=== PATIENT | male | born 1940 | race Caucasian/White ===

== ENCOUNTER 2020-01-19 10:30 | Observation (INO) ==
[2020-01-19] MEDS ORDERED: Azithromycin 500 MG in 0.9 % Sodium Chloride 250 ML IVPB ONE (10:58)
[2020-01-19] MEDS ORDERED: Ondansetron 4 MG/2 ML VIAL IVP ONE (10:58)
[2020-01-19] MEDS ORDERED: 0.9 % Sodium Chloride 1,000 ML IVC ONE (10:58)
[2020-01-19] MEDS ORDERED: cefTRIAXone 1,000 MG in Water for inj. (sterile) 10 ML IVP ONE (10:59)
[2020-01-19 11:47] LABS: Bilirubin,Urine Negative (Negative); Blood,Urine Negative (Negative); Clarity,Urine Clear (Clear); Color,Urine Yellow (Yellow); Glucose,Urine (UA) Normal (Normal); Ketones,Urine Negative (Negative); Leukocyte Esterase,Urine Negative (Negative); Nitrite,Urine Negative (Negative); Protein,Urine Trace mg/dL (Neg-Trace); Specific Gravity,Urine 1.021 (1.010-1.025); Urobilinogen,Urine Normal (Normal)
[2020-01-19 12:08] LABS: Hematocrit 35.8 % (37.5-50.1); Hemoglobin 11.7 g/dL (12.9-16.9); Mean Corpuscular HGB Conc 32.7 g/dL (31.6-35.5); Mean Corpuscular Hemoglobin 28.7 pg (28.0-33.3); Mean Corpuscular Volume 87.7 fL (83.0-100.0); Mean Platelet Volume 10.9 fL (9.4-12.4); Platelet Count 134 K/mcL (140-400); Red Blood Count 4.08 M/mcL (4.19-5.50); Red Cell Distribution Width 13.5 % (11.5-14.5); White Blood Count 5.1 K/mcL (4.3-11.1)
[2020-01-19 12:09] LABS: Basophils % 0.2 %; Lymphocytes # 1.3 K/mcL (0.6-4.6); Lymphocytes % 24.7 %; Monocytes # 0.5 K/mcL (0.0-1.3); Monocytes % 9.3 %; Neutrophils # 3.3 K/mcL (1.6-8.9); Segmented Neutrophils % 65.2 %
[2020-01-19 12:10] LABS: Activated Partial Thrombo Time 40.2 Seconds (26.0-36.0); INR 1.6; Prothrombin Time 18.3 Seconds (9.4-12.1)
[2020-01-19 12:21] LABS: Troponin I < 0.03 ng/mL (< 0.04)
[2020-01-19 12:32] LABS: Alanine Aminotransferase 33 Units/L (7-52); Albumin 3.7 g/dL (3.5-5.7); Albumin/Globulin Ratio 1.3 (1.1-2.2); Alkaline Phosphatase 47 Units/L (34-104); Amylase 30 Units/L (29-103); Aspartate Amino Transferase 47 Units/L (13-39); BUN/Creatinine Ratio 20 (6-26); Bilirubin,Direct 0.2 mg/dL (0.0-0.2); Bilirubin,Indirect 0.5 mg/dL (0.0-1.0); Bilirubin,Total 0.7 mg/dL (0.3-1.0); Blood Urea Nitrogen 24 mg/dL (8-23); Calcium 8.3 mg/dL (8.6-10.3); Carbon Dioxide 22 mEq/L (23-29); Chloride 95 mEq/L (98-107); Globulin 2.9 g/dL (2.4-3.5); Glucose 125 mg/dL (70-105); Lipase 36 Units/L (11-82); Magnesium 1.4 mg/dL (1.6-2.6); Osmolality,Calculated 268 (280-300); Potassium 4.8 mEq/L (3.5-5.1); Sodium 126 mEq/L (136-145); Total Protein 6.6 g/dL (6.4-8.9); eGFR For African Americans > 60 (> 60); eGFR For Non-African Americans 58 (> 60)
[2020-01-19] MEDS ORDERED: Acetaminophen 325 MG TABLET PO PRN (12:46)
[2020-01-19] MEDS ORDERED: Ondansetron 4 MG/2 ML VIAL IVP PRN (12:46)
[2020-01-19] MEDS ORDERED: Dextrose Gel 15 GM/37.5 ML TUBE PO PRN ×2 (20:25)
[2020-01-19] MEDS ORDERED: D5% in Water 1,000 ML IVC PRN (20:25)
[2020-01-19] MEDS ORDERED: *HR* Dextrose 50 % in Water (Vial) 50 ML VIAL IVP PRN (20:25)
[2020-01-19] MEDS: Famotidine 20 MG TABLET PO SCH (20:27)
[2020-01-19] MEDS: Apixaban 5 MG TABLET PO SCH (20:53)
[2020-01-19] MEDS ORDERED: Insulin LISPRO 300 UNITS/3 ML VIAL SQ SCH (21:00)
[2020-01-20] MEDS ORDERED: Melatonin 3 MG TABLET PO PRN
[2020-01-20 05:50] VITALS: BP 110/55
[2020-01-20 06:15] LABS: INR 1.6; Prothrombin Time 18.2 Seconds (9.4-12.1)
[2020-01-20 06:27] LABS: Alanine Aminotransferase 29 Units/L (7-52); Albumin 3.2 g/dL (3.5-5.7); Albumin/Globulin Ratio 1.2 (1.1-2.2); Alkaline Phosphatase 42 Units/L (34-104); Aspartate Amino Transferase 44 Units/L (13-39); BUN/Creatinine Ratio 21 (6-26); Bilirubin,Direct 0.3 mg/dL (0.0-0.2); Bilirubin,Indirect 0.4 mg/dL (0.0-1.0); Bilirubin,Total 0.7 mg/dL (0.3-1.0); Blood Urea Nitrogen 23 mg/dL (8-23); Calcium 7.9 mg/dL (8.6-10.3); Carbon Dioxide 23 mEq/L (23-29); Chloride 96 mEq/L (98-107); Globulin 2.6 g/dL (2.4-3.5); Glucose 110 mg/dL (70-105); Lactate Dehydrogenase 234 Units/L (140-271); Osmolality,Calculated 268 (280-300); Phosphorous 3.9 mg/dL (2.7-4.5); Potassium 4.7 mEq/L (3.5-5.1); Sodium 127 mEq/L (136-145); Total Protein 5.8 g/dL (6.4-8.9); eGFR For African Americans > 60 (> 60); eGFR For Non-African Americans > 60 (> 60)
[2020-01-20 06:40] LABS: Ferritin 508 ng/mL (20-250)
[2020-01-20] MEDS ORDERED: Insulin LISPRO 300 UNITS/3 ML VIAL SQ SCH (07:30)
[2020-01-20 07:49] LABS: Hemoglobin 10.9 g/dL (12.9-16.9); Mean Corpuscular Hemoglobin 29.3 pg (28.0-33.3); Mean Corpuscular Volume 88.7 fL (83.0-100.0); Mean Platelet Volume 11.6 fL (9.4-12.4); Platelet Count 124 K/mcL (140-400); Red Blood Count 3.72 M/mcL (4.19-5.50); Red Cell Distribution Width 13.6 % (11.5-14.5); White Blood Count 4.8 K/mcL (4.3-11.1)
[2020-01-20] MEDS ORDERED: Aspirin Enteric Coated 81 MG Tablet PO SCH (09:00)
[2020-01-20] MEDS ORDERED: Finasteride 5 MG TABLET PO SCH (09:00)
[2020-01-20] MEDS: Apixaban 5 MG TABLET PO SCH (09:27)
[2020-01-20] MEDS: Famotidine 20 MG TABLET PO SCH (09:27)
[2020-01-20 09:35] LABS: C-Reactive Protein 25 mg/L (Less than 10)
== END 2020-01-20 12:02 | disposition home or self-care (01) ==
LOC: EMEROOARM 10:30 → 2NENU 10:30 → SUATTDRO 13:48 → 2NENU 14:21
PROVIDERS: ADMIT Internal Medicine; ATTEND Internal Medicine

== ENCOUNTER 2020-01-22 13:02 | Inpatient (IN) ==
[2020-01-22] MEDS ORDERED: Ondansetron 4 MG/2 ML VIAL IVP ONE (13:47)
[2020-01-22] MEDS ORDERED: 0.9 % Sodium Chloride 1,000 ML IVC ONE (13:47)
[2020-01-22] MEDS ORDERED: *HR* Promethazine 25 MG/ML VIAL IVP ONE (14:00)
[2020-01-22 14:25] LABS: Bacteria,Urine Few per hpf (None-Few); Bilirubin,Urine Negative (Negative); Blood,Urine Trace (Negative); Clarity,Urine Clear (Clear); Color,Urine Yellow (Yellow); Glucose,Urine (UA) Normal (Normal); Hyaline Casts,Urine Few per lpf (None Seen); Ketones,Urine Negative (Negative); Leukocyte Esterase,Urine Negative (Negative); Mucus,Urine Few per lpf (None-Few); Nitrite,Urine Negative (Negative); PH,Urine 6.5 pH Units (5.0-8.0); Protein,Urine 50 mg/dL (Neg-Trace); RBC,Urine 0-3 per hpf (0-3); Specific Gravity,Urine 1.014 (1.010-1.025); Urobilinogen,Urine Normal (Normal); WBC,Urine 0-3 per hpf (0-3)
[2020-01-22 14:36] LABS: Hematocrit 35.8 % (37.5-50.1); Hemoglobin 11.8 g/dL (12.9-16.9); Lymphocytes # 1.1 K/mcL (0.6-4.6); Mean Corpuscular Hemoglobin 28.9 pg (28.0-33.3); Mean Corpuscular Volume 87.5 fL (83.0-100.0); Mean Platelet Volume 10.6 fL (9.4-12.4); Monocytes # 0.5 K/mcL (0.0-1.3); Neutrophils # 4.4 K/mcL (1.6-8.9); Platelet Count 168 K/mcL (140-400); Red Blood Count 4.09 M/mcL (4.19-5.50); Red Cell Distribution Width 13.1 % (11.5-14.5)
[2020-01-22 15:03] LABS: Reactive Lymphocytes Present (Not Present)
[2020-01-22 15:06] LABS: Toxic Granulation Present (Not Present)
[2020-01-22 15:13] LABS: Platelet Estimate Normal (Normal); Poikilocytosis 1+ (Not Present)
[2020-01-22 15:18] LABS: Alanine Aminotransferase 38 Units/L (7-52); Albumin 3.6 g/dL (3.5-5.7); Albumin/Globulin Ratio 1.2 (1.1-2.2); Alkaline Phosphatase 56 Units/L (34-104); Aspartate Amino Transferase 65 Units/L (13-39); BUN/Creatinine Ratio 15 (6-26); Bilirubin,Direct 0.4 mg/dL (0.0-0.2); Bilirubin,Indirect 0.5 mg/dL (0.0-1.0); Bilirubin,Total 0.9 mg/dL (0.3-1.0); Blood Urea Nitrogen 15 mg/dL (8-23); Carbon Dioxide 23 mEq/L (23-29); Chloride 89 mEq/L (98-107); Glucose 167 mg/dL (70-105); Magnesium 1.4 mg/dL (1.6-2.6); Osmolality,Calculated 259 (280-300); Potassium 4.3 mEq/L (3.5-5.1); Sodium 122 mEq/L (136-145); Total Protein 6.6 g/dL (6.4-8.9); Troponin I < 0.03 ng/mL (< 0.04); eGFR For African Americans > 60 (> 60); eGFR For Non-African Americans > 60 (> 60)
[2020-01-22] MEDS ORDERED: cefTRIAXone 1,000 MG in Water for inj. (sterile) 10 ML IVP ONE (16:12)
[2020-01-22] MEDS ORDERED: Dexamethasone 4 MG/ML VIAL IVP STA (16:12)
[2020-01-22] MEDS ORDERED: Ondansetron 4 MG/2 ML VIAL IVP PRN (16:34)
[2020-01-22] MEDS ORDERED: *HR* Promethazine 25 MG/ML VIAL IVP PRN (16:34)
[2020-01-22] MEDS ORDERED: Calcium Gluconate 1gm/50mL 1 GM/50 ML BAG IVPB ONE (16:41)
[2020-01-22] MEDS: 0.9 % Sodium Chloride 1,000 ML IVC SCH (21:17)
[2020-01-23] MEDS ORDERED: Acetaminophen 325 MG TABLET PO PRN (02:46)
[2020-01-23 06:59] LABS: Hematocrit 35.2 % (37.5-50.1); Hemoglobin 11.9 g/dL (12.9-16.9); Mean Corpuscular HGB Conc 33.8 g/dL (31.6-35.5); Mean Corpuscular Hemoglobin 29.5 pg (28.0-33.3); Mean Corpuscular Volume 87.3 fL (83.0-100.0); Mean Platelet Volume 10.6 fL (9.4-12.4); Platelet Count 185 K/mcL (140-400); Red Blood Count 4.03 M/mcL (4.19-5.50); Red Cell Distribution Width 13.1 % (11.5-14.5); White Blood Count 4.4 K/mcL (4.3-11.1)
[2020-01-23 07:00] LABS: INR 1.3
[2020-01-23 07:17] LABS: Blood Urea Nitrogen 14 mg/dL (8-23); Carbon Dioxide 25 mEq/L (23-29); Chloride 99 mEq/L (98-107); Sodium 129 mEq/L (136-145)
[2020-01-23 07:18] LABS: BUN/Creatinine Ratio 16 (6-26); Calcium 8.2 mg/dL (8.6-10.3); Glucose 208 mg/dL (70-105); Magnesium 2.4 mg/dL (1.6-2.6); Osmolality,Calculated 275 (280-300); eGFR For African Americans > 60 (> 60); eGFR For Non-African Americans > 60 (> 60)
[2020-01-23 07:22] LABS: Phosphorous 2.8 mg/dL (2.7-4.5)
[2020-01-23] MEDS: 0.9 % Sodium Chloride 1,000 ML IVC SCH (08:45)
[2020-01-23] MEDS: Dexamethasone 4 MG/ML VIAL IVP SCH (08:54)
[2020-01-23] MEDS ORDERED: 0.9 % Sodium Chloride 1,000 ML IVC SCH (11:15)
[2020-01-23] MEDS: Aspirin Enteric Coated 81 MG Tablet PO SCH (12:24)
[2020-01-23] MEDS: Apixaban 5 MG TABLET PO SCH ×2 (12:24→20:39)
[2020-01-23] MEDS ORDERED: 0.9 % Sodium Chloride 250 ML ONE (18:10)
[2020-01-23] MEDS: Famotidine 20 MG TABLET PO SCH (20:38)
[2020-01-24 05:29] LABS: BUN/Creatinine Ratio 25 (6-26); Blood Urea Nitrogen 18 mg/dL (8-23); Calcium 7.8 mg/dL (8.6-10.3); Carbon Dioxide 23 mEq/L (23-29); Chloride 104 mEq/L (98-107); Glucose 174 mg/dL (70-105); Osmolality,Calculated 282 (280-300); Potassium 4.7 mEq/L (3.5-5.1); Sodium 133 mEq/L (136-145); eGFR For African Americans > 60 (> 60); eGFR For Non-African Americans > 60 (> 60)
[2020-01-24] MEDS: Aspirin Enteric Coated 81 MG Tablet PO SCH (08:19)
[2020-01-24] MEDS: Dexamethasone 4 MG/ML VIAL IVP SCH (08:19)
[2020-01-24] MEDS: lisinopriL 20 MG TABLET PO SCH (08:19)
[2020-01-24] MEDS: Famotidine 20 MG TABLET PO SCH ×2 (08:19→21:15)
[2020-01-24] MEDS: Apixaban 5 MG TABLET PO SCH ×2 (08:20→21:15)
[2020-01-24] MEDS ORDERED: 0.9 % Sodium Chloride 250 ML ONE (13:07)
[2020-01-24] MEDS: Finasteride 5 MG TABLET PO SCH (13:36)
[2020-01-24 22:13] LABS: Basophils % 0.2 %; Hematocrit 35.5 % (37.5-50.1); Hemoglobin 11.5 g/dL (12.9-16.9); Lymphocytes # 1.3 K/mcL (0.6-4.6); Lymphocytes % 10.3 %; Mean Corpuscular HGB Conc 32.4 g/dL (31.6-35.5); Mean Corpuscular Hemoglobin 28.7 pg (28.0-33.3); Mean Corpuscular Volume 88.5 fL (83.0-100.0); Mean Platelet Volume 10.4 fL (9.4-12.4); Monocytes # 0.9 K/mcL (0.0-1.3); Neutrophils # 10.4 K/mcL (1.6-8.9); Platelet Count 252 K/mcL (140-400); Red Blood Count 4.01 M/mcL (4.19-5.50); Red Cell Distribution Width 13.3 % (11.5-14.5); Segmented Neutrophils % 81.5 %
[2020-01-24 22:14] LABS: White Blood Count 12.8 K/mcL (4.3-11.1)
[2020-01-24 22:29] LABS: Alanine Aminotransferase 51 Units/L (7-52); Albumin 3.3 g/dL (3.5-5.7); Alkaline Phosphatase 58 Units/L (34-104); Aspartate Amino Transferase 66 Units/L (13-39); BUN/Creatinine Ratio 24 (6-26); Bilirubin,Total 0.7 mg/dL (0.3-1.0); Blood Urea Nitrogen 21 mg/dL (8-23); Calcium 8.1 mg/dL (8.6-10.3); Carbon Dioxide 21 mEq/L (23-29); Chloride 101 mEq/L (98-107); Globulin 3.3 g/dL (2.4-3.5); Glucose 203 mg/dL (70-105); Lactate Dehydrogenase 414 Units/L (140-271); Magnesium 1.8 mg/dL (1.6-2.6); Osmolality,Calculated 281 (280-300); Potassium 4.8 mEq/L (3.5-5.1); Sodium 131 mEq/L (136-145); Total Protein 6.6 g/dL (6.4-8.9); eGFR For African Americans > 60 (> 60); eGFR For Non-African Americans > 60 (> 60)
[2020-01-24 22:30] LABS: Troponin I < 0.03 ng/mL (< 0.04)
[2020-01-24 22:34] LABS: Platelet Estimate Normal (Normal); Reactive Lymphocytes Present (Not Present)
[2020-01-25] MEDS ORDERED: 0.9 % Sodium Chloride 1,000 ML ONE (08:36)
[2020-01-25] MEDS: Finasteride 5 MG TABLET PO SCH (08:39)
[2020-01-25] MEDS: Famotidine 20 MG TABLET PO SCH ×2 (08:39→19:48)
[2020-01-25] MEDS ORDERED: 0.9 % Sodium Chloride 1,000 ML IVC ONE ×2 (08:40→11:48)
[2020-01-25] MEDS: Apixaban 5 MG TABLET PO SCH ×2 (08:40→19:48)
[2020-01-25] MEDS: Dexamethasone 4 MG/ML VIAL IVP SCH (08:40)
[2020-01-25] MEDS: Aspirin Enteric Coated 81 MG Tablet PO SCH (08:40)
[2020-01-25] MEDS: lisinopriL 20 MG TABLET PO SCH (08:42)
[2020-01-25 11:30] LABS: Magnesium 1.6 mg/dL (1.6-2.6); Phosphorous 2.5 mg/dL (2.7-4.5)
[2020-01-26 06:09] LABS: Hematocrit 37.1 % (37.5-50.1); Hemoglobin 11.9 g/dL (12.9-16.9); Mean Corpuscular HGB Conc 32.1 g/dL (31.6-35.5); Mean Corpuscular Hemoglobin 28.1 pg (28.0-33.3); Mean Corpuscular Volume 87.7 fL (83.0-100.0); Mean Platelet Volume 10.7 fL (9.4-12.4); Platelet Count 283 K/mcL (140-400); Red Blood Count 4.23 M/mcL (4.19-5.50); Red Cell Distribution Width 13.3 % (11.5-14.5); White Blood Count 10.1 K/mcL (4.3-11.1)
[2020-01-26 06:30] LABS: BUN/Creatinine Ratio 26 (6-26); Blood Urea Nitrogen 19 mg/dL (8-23); Calcium 8.2 mg/dL (8.6-10.3); Carbon Dioxide 25 mEq/L (23-29); Chloride 102 mEq/L (98-107); Glucose 180 mg/dL (70-105); Osmolality,Calculated 289 (280-300); Phosphorous 4.6 mg/dL (2.7-4.5); Potassium 4.2 mEq/L (3.5-5.1); Sodium 136 mEq/L (136-145); eGFR For African Americans > 60 (> 60); eGFR For Non-African Americans > 60 (> 60)
[2020-01-26] MEDS: Dexamethasone 4 MG/ML VIAL IVP SCH (09:35)
[2020-01-26] MEDS: Apixaban 5 MG TABLET PO SCH ×2 (09:36→21:22)
[2020-01-26] MEDS: Finasteride 5 MG TABLET PO SCH (09:36)
[2020-01-26] MEDS: Aspirin Enteric Coated 81 MG Tablet PO SCH (09:36)
[2020-01-26] MEDS: Famotidine 20 MG TABLET PO SCH ×2 (09:36→21:21)
[2020-01-26] MEDS ORDERED: Perflutren Lipid Microsphere 1.3 ML in 0.9 % Sodium Chloride 8.7 ML IVP PRN (14:35)
[2020-01-26] MEDS: *HR* Digoxin 0.25 MG TABLET PO SCH (17:12)
[2020-01-26] MEDS ORDERED: Dextrose Gel 15 GM/37.5 ML TUBE PO PRN ×2 (21:08)
[2020-01-26] MEDS ORDERED: D5% in Water 1,000 ML IVC PRN (21:08)
[2020-01-26] MEDS ORDERED: *HR* Dextrose 50 % in Water (Vial) 50 ML VIAL IVP PRN (21:08)
[2020-01-26] MEDS: Insulin LISPRO 300 UNITS/3 ML VIAL SQ SCH (21:53)
[2020-01-27] MEDS ORDERED: *HR* Metoprolol 5 MG/5 ML VIAL IVP ONE (05:36)
[2020-01-27] MEDS: *HR* Metoprolol 5 MG/5 ML VIAL IVP PRN ×2 (05:43→12:50)
[2020-01-27 06:35] LABS: Hematocrit 39.2 % (37.5-50.1); Hemoglobin 12.9 g/dL (12.9-16.9); Mean Corpuscular HGB Conc 32.9 g/dL (31.6-35.5); Mean Corpuscular Hemoglobin 28.7 pg (28.0-33.3); Mean Corpuscular Volume 87.1 fL (83.0-100.0); Platelet Count 292 K/mcL (140-400); White Blood Count 11.2 K/mcL (4.3-11.1)
[2020-01-27 06:55] LABS: BUN/Creatinine Ratio 27 (6-26); Blood Urea Nitrogen 20 mg/dL (8-23); Calcium 8.4 mg/dL (8.6-10.3); Carbon Dioxide 25 mEq/L (23-29); Chloride 97 mEq/L (98-107); Glucose 174 mg/dL (70-105); Osmolality,Calculated 281 (280-300); Potassium 4.4 mEq/L (3.5-5.1); Sodium 132 mEq/L (136-145); eGFR For African Americans > 60 (> 60); eGFR For Non-African Americans > 60 (> 60)
[2020-01-27] MEDS: Dexamethasone 4 MG/ML VIAL IVP SCH (07:51)
[2020-01-27] MEDS: Finasteride 5 MG TABLET PO SCH (07:52)
[2020-01-27] MEDS: Apixaban 5 MG TABLET PO SCH ×2 (07:52→20:57)
[2020-01-27] MEDS: Aspirin Enteric Coated 81 MG Tablet PO SCH (07:52)
[2020-01-27] MEDS: *HR* Digoxin 0.25 MG TABLET PO SCH (07:52)
[2020-01-27] MEDS: Famotidine 20 MG TABLET PO SCH ×2 (07:52→20:57)
[2020-01-27] MEDS: Insulin LISPRO 300 UNITS/3 ML VIAL SQ SCH ×4 (08:17→20:55)
[2020-01-27 09:21] LABS: Thyroid Stimulating Hormone 0.566 mcIU/mL (0.340-5.600)
[2020-01-27] MEDS: lisinopriL 5 MG TABLET PO SCH (10:25)
[2020-01-27] MEDS ORDERED: 0.9 % Sodium Chloride 250 ML ONE (14:22)
[2020-01-27] MEDS: Metoprolol XL (24 HR) Succ 25 MG TAB.ER.24H PO SCH (20:57)
[2020-01-28] MEDS: Aspirin Enteric Coated 81 MG Tablet PO SCH (08:30)
[2020-01-28] MEDS: Metoprolol XL (24 HR) Succ 25 MG TAB.ER.24H PO SCH ×2 (08:30→21:34)
[2020-01-28] MEDS: Famotidine 20 MG TABLET PO SCH ×2 (08:30→21:34)
[2020-01-28] MEDS: Insulin LISPRO 300 UNITS/3 ML VIAL SQ SCH ×4 (08:31→21:32)
[2020-01-28] MEDS: Dexamethasone 4 MG/ML VIAL IVP SCH (08:31)
[2020-01-28] MEDS: Apixaban 5 MG TABLET PO SCH ×2 (08:31→21:35)
[2020-01-28] MEDS: Finasteride 5 MG TABLET PO SCH (08:31)
[2020-01-28 10:41] LABS: Hematocrit 39.4 % (37.5-50.1); Mean Corpuscular Hemoglobin 28.3 pg (28.0-33.3); Mean Corpuscular Volume 85.8 fL (83.0-100.0); Mean Platelet Volume 10.6 fL (9.4-12.4); Platelet Count 366 K/mcL (140-400); Red Blood Count 4.59 M/mcL (4.19-5.50); Red Cell Distribution Width 13.1 % (11.5-14.5); White Blood Count 11.1 K/mcL (4.3-11.1)
[2020-01-28 11:01] LABS: BUN/Creatinine Ratio 26 (6-26); Blood Urea Nitrogen 22 mg/dL (8-23); Calcium 8.6 mg/dL (8.6-10.3); Carbon Dioxide 24 mEq/L (23-29); Chloride 96 mEq/L (98-107); Glucose 175 mg/dL (70-105); Osmolality,Calculated 282 (280-300); Potassium 4.2 mEq/L (3.5-5.1); Sodium 132 mEq/L (136-145); eGFR For African Americans > 60 (> 60); eGFR For Non-African Americans > 60 (> 60)
[2020-01-28] MEDS: lisinopriL 5 MG TABLET PO SCH (12:09)
[2020-01-29] MEDS: lisinopriL 5 MG TABLET PO SCH (07:39)
[2020-01-29] MEDS: Famotidine 20 MG TABLET PO SCH ×2 (07:39→21:14)
[2020-01-29] MEDS: Finasteride 5 MG TABLET PO SCH (07:39)
[2020-01-29] MEDS: Aspirin Enteric Coated 81 MG Tablet PO SCH (07:39)
[2020-01-29] MEDS: Metoprolol XL (24 HR) Succ 25 MG TAB.ER.24H PO SCH ×2 (07:40→21:14)
[2020-01-29] MEDS: Dexamethasone 4 MG/ML VIAL IVP SCH (07:40)
[2020-01-29] MEDS: Apixaban 5 MG TABLET PO SCH ×2 (07:40→21:14)
[2020-01-29] MEDS: Insulin LISPRO 300 UNITS/3 ML VIAL SQ SCH ×4 (08:12→21:15)
[2020-01-29 10:04] LABS: Hematocrit 42.3 % (37.5-50.1); Mean Corpuscular HGB Conc 33.1 g/dL (31.6-35.5); Mean Corpuscular Hemoglobin 29.3 pg (28.0-33.3); Mean Corpuscular Volume 88.5 fL (83.0-100.0); Platelet Count 352 K/mcL (140-400); Red Blood Count 4.78 M/mcL (4.19-5.50); Red Cell Distribution Width 13.1 % (11.5-14.5); White Blood Count 13.1 K/mcL (4.3-11.1)
[2020-01-29 10:18] LABS: BUN/Creatinine Ratio 27 (6-26); Blood Urea Nitrogen 28 mg/dL (8-23); Calcium 8.6 mg/dL (8.6-10.3); Carbon Dioxide 23 mEq/L (23-29); Chloride 95 mEq/L (98-107); Glucose 222 mg/dL (70-105); Magnesium 1.8 mg/dL (1.6-2.6); Osmolality,Calculated 282 (280-300); Phosphorous 4.6 mg/dL (2.7-4.5); Potassium 4.6 mEq/L (3.5-5.1); Sodium 130 mEq/L (136-145); eGFR For African Americans > 60 (> 60); eGFR For Non-African Americans > 60 (> 60)
[2020-01-30] MEDS: Famotidine 20 MG TABLET PO SCH ×2 (09:37→20:35)
[2020-01-30] MEDS: Apixaban 5 MG TABLET PO SCH ×2 (09:37→20:36)
[2020-01-30] MEDS: Aspirin Enteric Coated 81 MG Tablet PO SCH (09:38)
[2020-01-30] MEDS: Finasteride 5 MG TABLET PO SCH (09:38)
[2020-01-30] MEDS: Metoprolol XL (24 HR) Succ 25 MG TAB.ER.24H PO SCH (09:38)
[2020-01-30] MEDS: Dexamethasone 4 MG/ML VIAL IVP SCH (09:38)
[2020-01-30] MEDS: amLODIPine 5 MG TABLET PO SCH (09:38)
[2020-01-30] MEDS: Insulin LISPRO 300 UNITS/3 ML VIAL SQ SCH ×4 (09:45→20:37)
[2020-01-30 11:25] LABS: Hematocrit 40.3 % (37.5-50.1); Hemoglobin 13.4 g/dL (12.9-16.9); Mean Corpuscular HGB Conc 33.3 g/dL (31.6-35.5); Mean Corpuscular Volume 87.2 fL (83.0-100.0); Mean Platelet Volume 9.7 fL (9.4-12.4); Platelet Count 382 K/mcL (140-400); Red Blood Count 4.62 M/mcL (4.19-5.50); White Blood Count 10.4 K/mcL (4.3-11.1)
[2020-01-30 11:46] LABS: BUN/Creatinine Ratio 37 (6-26); Blood Urea Nitrogen 34 mg/dL (8-23); Calcium 8.2 mg/dL (8.6-10.3); Carbon Dioxide 26 mEq/L (23-29); Chloride 94 mEq/L (98-107); Glucose 230 mg/dL (70-105); Magnesium 1.6 mg/dL (1.6-2.6); Osmolality,Calculated 283 (280-300); Potassium 4.5 mEq/L (3.5-5.1); Sodium 129 mEq/L (136-145); eGFR For African Americans > 60 (> 60); eGFR For Non-African Americans > 60 (> 60)
[2020-01-30] MEDS ORDERED: 0.9 % Sodium Chloride 500 ML IVC SCH (12:15)
[2020-01-31 02:54] LABS: Hematocrit 40.7 % (37.5-50.1); Hemoglobin 12.9 g/dL (12.9-16.9); Mean Corpuscular HGB Conc 31.7 g/dL (31.6-35.5); Mean Corpuscular Hemoglobin 29.1 pg (28.0-33.3); Mean Corpuscular Volume 91.9 fL (83.0-100.0); Mean Platelet Volume 10.1 fL (9.4-12.4); Platelet Count 220 K/mcL (140-400); Red Blood Count 4.43 M/mcL (4.19-5.50); Red Cell Distribution Width 12.9 % (11.5-14.5)
[2020-01-31 03:31] LABS: BUN/Creatinine Ratio 40 (6-26); Blood Urea Nitrogen 36 mg/dL (8-23); Calcium 8.1 mg/dL (8.6-10.3); Carbon Dioxide 20 mEq/L (23-29); Chloride 99 mEq/L (98-107); Glucose 166 mg/dL (70-105); Osmolality,Calculated 278 (280-300); Sodium 128 mEq/L (136-145); eGFR For African Americans > 60 (> 60); eGFR For Non-African Americans > 60 (> 60)
[2020-01-31] MEDS: Famotidine 20 MG TABLET PO SCH ×2 (07:48→21:04)
[2020-01-31] MEDS: amLODIPine 5 MG TABLET PO SCH (07:48)
[2020-01-31] MEDS: Metoprolol XL (24 HR) Succ 25 MG TAB.ER.24H PO SCH (07:48)
[2020-01-31] MEDS: Aspirin Enteric Coated 81 MG Tablet PO SCH (07:48)
[2020-01-31] MEDS: Finasteride 5 MG TABLET PO SCH (07:49)
[2020-01-31] MEDS: Apixaban 5 MG TABLET PO SCH ×2 (07:49→21:05)
[2020-01-31] MEDS: Dexamethasone 4 MG/ML VIAL IVP SCH (07:50)
[2020-01-31] MEDS: Insulin LISPRO 300 UNITS/3 ML VIAL SQ SCH ×6 (07:50→21:33)
[2020-01-31] MEDS ORDERED: Insulin Human Regular 10 UNIT in 0.9 % Sodium Chloride 10 ML IV ONE (16:35)
[2020-02-01 05:43] LABS: BUN/Creatinine Ratio 41 (6-26); Blood Urea Nitrogen 38 mg/dL (8-23); Calcium 8.4 mg/dL (8.6-10.3); Carbon Dioxide 25 mEq/L (23-29); Chloride 96 mEq/L (98-107); Glucose 175 mg/dL (70-105); Osmolality,Calculated 277 (280-300); Potassium 4.5 mEq/L (3.5-5.1); Sodium 127 mEq/L (136-145); eGFR For African Americans > 60 (> 60); eGFR For Non-African Americans > 60 (> 60)
[2020-02-01] MEDS: Finasteride 5 MG TABLET PO SCH (07:53)
[2020-02-01] MEDS: Famotidine 20 MG TABLET PO SCH ×2 (07:54→19:54)
[2020-02-01] MEDS: Metoprolol XL (24 HR) Succ 25 MG TAB.ER.24H PO SCH (07:54)
[2020-02-01] MEDS: Aspirin Enteric Coated 81 MG Tablet PO SCH (07:54)
[2020-02-01] MEDS: amLODIPine 5 MG TABLET PO SCH ×2 (07:54→08:24)
[2020-02-01] MEDS: Apixaban 5 MG TABLET PO SCH ×2 (07:54→19:55)
[2020-02-01] MEDS: Insulin LISPRO 300 UNITS/3 ML VIAL SQ SCH ×7 (08:24→19:55)
[2020-02-01 17:40] LABS: Adenovirus Not Detected (Not Detect); Coronavirus 229E Not Detected (Not Detect); Coronavirus HKU1 Not Detected (Not Detect); Coronavirus NL63 Not Detected (Not Detect); Coronavirus OC43 Not Detected (Not Detect)
[2020-02-01 17:41] LABS: Bordetella Pertussis Not Detected (Not Detect); Chlamydophila pneumoniae Not Detected (Not Detect); Human Metapneumovirus Not Detected (Not Detect); Human Rhinovirus/Enterovirus Not Detected (Not Detect); Influenza A Subtype 2009 H1 Not Detected (Not Detect); Influenza B Not Detected (Not Detect); Mycoplasma pneumoniae Not Detected (Not Detect); Parainfluenza Virus 1 Not Detected (Not Detect); Parainfluenza Virus 2 Not Detected (Not Detect); Parainfluenza Virus 3 Not Detected (Not Detect); Parainfluenza Virus 4 Not Detected (Not Detect); Respiratory Syncytial Virus Not Detected (Not Detect); SARS-CoV-2 DETECTED (Not Detect)
[2020-02-02 06:59] LABS: BUN/Creatinine Ratio 41 (6-26); Blood Urea Nitrogen 36 mg/dL (8-23); Calcium 8.3 mg/dL (8.6-10.3); Carbon Dioxide 22 mEq/L (23-29); Chloride 96 mEq/L (98-107); Glucose 168 mg/dL (70-105); Osmolality,Calculated 274 (280-300); Potassium 4.6 mEq/L (3.5-5.1); Sodium 126 mEq/L (136-145); eGFR For African Americans > 60 (> 60); eGFR For Non-African Americans > 60 (> 60)
[2020-02-02] MEDS: Famotidine 20 MG TABLET PO SCH ×2 (07:51→20:21)
[2020-02-02] MEDS: Apixaban 5 MG TABLET PO SCH ×2 (07:52→20:21)
[2020-02-02] MEDS: Finasteride 5 MG TABLET PO SCH (07:52)
[2020-02-02] MEDS: Insulin LISPRO 300 UNITS/3 ML VIAL SQ SCH ×7 (07:52→20:34)
[2020-02-02] MEDS: Metoprolol XL (24 HR) Succ 25 MG TAB.ER.24H PO SCH (07:52)
[2020-02-02] MEDS: Aspirin Enteric Coated 81 MG Tablet PO SCH (07:52)
[2020-02-03] MEDS: Finasteride 5 MG TABLET PO SCH (07:47)
[2020-02-03] MEDS: Apixaban 5 MG TABLET PO SCH ×2 (07:47→21:21)
[2020-02-03] MEDS: Aspirin Enteric Coated 81 MG Tablet PO SCH (07:47)
[2020-02-03] MEDS: Famotidine 20 MG TABLET PO SCH ×2 (07:48→21:21)
[2020-02-03] MEDS: Metoprolol XL (24 HR) Succ 25 MG TAB.ER.24H PO SCH (07:48)
[2020-02-03] MEDS: Insulin LISPRO 300 UNITS/3 ML VIAL SQ SCH ×7 (08:23→21:21)
[2020-02-03 10:56] LABS: BUN/Creatinine Ratio 30 (6-26); Blood Urea Nitrogen 28 mg/dL (8-23); Calcium 8.1 mg/dL (8.6-10.3); Carbon Dioxide 27 mEq/L (23-29); Chloride 96 mEq/L (98-107); Glucose 316 mg/dL (70-105); Osmolality,Calculated 284 (280-300); Potassium 4.4 mEq/L (3.5-5.1); Sodium 128 mEq/L (136-145); eGFR For African Americans > 60 (> 60); eGFR For Non-African Americans > 60 (> 60)
[2020-02-04 08:37] LABS: Basophils % 0.3 %; Eosinophils # 0.1 K/mcL (0.0-0.6); Eosinophils % 0.8 %; Hemoglobin 12.7 g/dL (12.9-16.9); Immature Granulocytes % 0.6 % (0-4); Lymphocytes # 1.4 K/mcL (0.6-4.6); Lymphocytes % 15.5 %; Mean Corpuscular HGB Conc 31.8 g/dL (31.6-35.5); Mean Corpuscular Hemoglobin 28.1 pg (28.0-33.3); Mean Corpuscular Volume 88.5 fL (83.0-100.0); Mean Platelet Volume 10.3 fL (9.4-12.4); Monocytes # 1.1 K/mcL (0.0-1.3); Neutrophils # 6.2 K/mcL (1.6-8.9); Platelet Count 274 K/mcL (140-400); Red Blood Count 4.52 M/mcL (4.19-5.50); Red Cell Distribution Width 13.6 % (11.5-14.5); Segmented Neutrophils % 70.8 %; White Blood Count 8.8 K/mcL (4.3-11.1)
[2020-02-04 08:53] LABS: BUN/Creatinine Ratio 24 (6-26); Blood Urea Nitrogen 19 mg/dL (8-23); Calcium 8.4 mg/dL (8.6-10.3); Carbon Dioxide 29 mEq/L (23-29); Chloride 98 mEq/L (98-107); Glucose 131 mg/dL (70-105); Osmolality,Calculated 278 (280-300); Potassium 4.6 mEq/L (3.5-5.1); Sodium 132 mEq/L (136-145); eGFR For African Americans > 60 (> 60); eGFR For Non-African Americans > 60 (> 60)
[2020-02-04] MEDS: Aspirin Enteric Coated 81 MG Tablet PO SCH (09:21)
[2020-02-04] MEDS: Famotidine 20 MG TABLET PO SCH ×2 (09:21→20:08)
[2020-02-04] MEDS: Metoprolol XL (24 HR) Succ 25 MG TAB.ER.24H PO SCH (09:21)
[2020-02-04] MEDS: Finasteride 5 MG TABLET PO SCH (09:21)
[2020-02-04] MEDS: Apixaban 5 MG TABLET PO SCH ×2 (09:21→20:07)
[2020-02-04] MEDS: Insulin LISPRO 300 UNITS/3 ML VIAL SQ SCH ×7 (09:21→20:12)
[2020-02-05 07:30] LABS: BUN/Creatinine Ratio 26 (6-26); Blood Urea Nitrogen 23 mg/dL (8-23); Calcium 8.5 mg/dL (8.6-10.3); Carbon Dioxide 26 mEq/L (23-29); Chloride 99 mEq/L (98-107); Glucose 132 mg/dL (70-105); Osmolality,Calculated 280 (280-300); Potassium 4.6 mEq/L (3.5-5.1); Sodium 132 mEq/L (136-145); eGFR For African Americans > 60 (> 60); eGFR For Non-African Americans > 60 (> 60)
[2020-02-05] MEDS: Insulin LISPRO 300 UNITS/3 ML VIAL SQ SCH ×7 (08:47→21:43)
[2020-02-05] MEDS: Aspirin Enteric Coated 81 MG Tablet PO SCH (08:52)
[2020-02-05] MEDS: Finasteride 5 MG TABLET PO SCH (08:52)
[2020-02-05] MEDS: Metoprolol XL (24 HR) Succ 25 MG TAB.ER.24H PO SCH (08:52)
[2020-02-05] MEDS: Apixaban 5 MG TABLET PO SCH ×2 (08:52→21:53)
[2020-02-05] MEDS: Famotidine 20 MG TABLET PO SCH ×2 (08:52→21:53)
[2020-02-05] MEDS ORDERED: Metoprolol XL (24 HR) Succ 25 MG TAB.ER.24H PO ONE (10:00)
[2020-02-06 06:13] LABS: BUN/Creatinine Ratio 22 (6-26); Blood Urea Nitrogen 18 mg/dL (8-23); Calcium 8.2 mg/dL (8.6-10.3); Carbon Dioxide 24 mEq/L (23-29); Chloride 98 mEq/L (98-107); Glucose 138 mg/dL (70-105); Osmolality,Calculated 272 (280-300); Potassium 4.7 mEq/L (3.5-5.1); Sodium 129 mEq/L (136-145); eGFR For African Americans > 60 (> 60); eGFR For Non-African Americans > 60 (> 60)
[2020-02-06] MEDS: Finasteride 5 MG TABLET PO SCH (08:58)
[2020-02-06] MEDS: Aspirin Enteric Coated 81 MG Tablet PO SCH (08:58)
[2020-02-06] MEDS: Famotidine 20 MG TABLET PO SCH ×2 (08:58→20:27)
[2020-02-06] MEDS: Apixaban 5 MG TABLET PO SCH ×2 (08:59→20:26)
[2020-02-06] MEDS: Insulin LISPRO 300 UNITS/3 ML VIAL SQ SCH ×7 (08:59→21:10)
[2020-02-06] MEDS ORDERED: Metoprolol XL (24 HR) Succ 50 MG TAB.ER.24H PO SCH (09:00)
[2020-02-06] MEDS: Insulin DETEMIR 100 UNIT/ML X5UNITS SQ SCH (14:59)
[2020-02-06] MEDS: Metoprolol XL (24 HR) Succ 50 MG TAB.ER.24H PO SCH (20:27)
[2020-02-07 04:45] LABS: BUN/Creatinine Ratio 21 (6-26); Blood Urea Nitrogen 20 mg/dL (8-23); Calcium 8.2 mg/dL (8.6-10.3); Carbon Dioxide 29 mEq/L (23-29); Chloride 99 mEq/L (98-107); Glucose 138 mg/dL (70-105); Osmolality,Calculated 279 (280-300); Potassium 4.1 mEq/L (3.5-5.1); Sodium 132 mEq/L (136-145); eGFR For African Americans > 60 (> 60); eGFR For Non-African Americans > 60 (> 60)
[2020-02-07] MEDS: Insulin LISPRO 300 UNITS/3 ML VIAL SQ SCH ×4 (07:38→12:28)
[2020-02-07] MEDS: Finasteride 5 MG TABLET PO SCH (07:47)
[2020-02-07] MEDS: Famotidine 20 MG TABLET PO SCH (07:47)
[2020-02-07] MEDS: Aspirin Enteric Coated 81 MG Tablet PO SCH (07:47)
[2020-02-07] MEDS: Metoprolol XL (24 HR) Succ 50 MG TAB.ER.24H PO SCH (07:47)
[2020-02-07] MEDS: Apixaban 5 MG TABLET PO SCH (07:47)
[2020-02-07] MEDS: Insulin DETEMIR 100 UNIT/ML X5UNITS SQ SCH (07:49)
[2020-02-07] MEDS ORDERED: FLU Vac QV 20-21 (6Month+)/PF 0.5 ML SYRINGE IM ONE (11:14)
[2020-02-07 11:17] VITALS: BP 125/70
== END 2020-02-07 14:24 | disposition home health service (06) | DRG 177 ==
LOC: 2NENU 13:02 → EMEROOARM 13:02 → SUATTDRO 17:13 → 2NENU 18:06
PROVIDERS: ADMIT Internal Medicine; ATTEND Pharmacist